=== PATIENT | female | born 1995 | race Caucasian/White ===

== ENCOUNTER → 2017-03-04 | Outpatient (REF) | payer OTHER | LOC: M SFHCWAGY 11:31 | DX: Z12.4 Encounter for screening for malignant neoplasm of cervix (principal) ==

== ENCOUNTER → 2017-03-04 | Outpatient (REF) | payer OTHER ==
[2017-03-04 15:42] LABS: CHLAMYDIA DNA AMPLIFICATION NEGATIVE (NEGATIVE); GC DNA AMPLIFICATION NEGATIVE (NEGATIVE)
== END ==
LOC: M SFHCWAGY 13:44
DX: Z11.3 Encounter for screening for infections with a predominantly sexual mode of transmission (principal)

== ENCOUNTER → 2020-04-10 | Outpatient (REF) | payer OTHER | LOC: M SFHCWAGY 18:56 | PROVIDERS: ATTEND Nurse Practitioner Women's Health | DX: Z12.4 Encounter for screening for malignant neoplasm of cervix (principal) ==

== ENCOUNTER 2022-03-30 08:30 | Day surgery (SDC) | payer OTHER, SELFPAY ==
[~2022-03-30] VITALS: Ht 157.5 cm; Wt 68.4 kg
[2022-03-30] MEDS ORDERED: ONDANSETRON 4MG 2ML VIAL ONE (09:52)
[2022-03-30] MEDS ORDERED: LIDOCAINE 2% 100MG/5ML SDV (FOR ANES.) ONE (09:52)
[2022-03-30] MEDS ORDERED: propofoL 200 MG/20 ML VIAL ONE (09:52)
[2022-03-30] MEDS ORDERED: ACETAMINOPHEN 1000MG 100ML IV BAG ONE (09:52)
[2022-03-30] MEDS ORDERED: ROCURONIUM BROMIDE 50MG/5ML VIAL ONE (09:52)
[2022-03-30] MEDS ORDERED: fentaNYL 100 MCG/2 ML INJECTION ONE (09:53)
[2022-03-30] MEDS ORDERED: MIDAZOLAM INJ 2MG/2ML VIAL ONE (09:53)
[2022-03-30] MEDS ORDERED: CLINDAMYCIN 600MG/50ML PREMIX BAG ONE (10:35)
[2022-03-30] MEDS ORDERED: BUPIVACAINE/EPIN 0.25% 30ML VIAL ONE (10:35)
[2022-03-30] MEDS ORDERED: ONDANSETRON 4MG 2ML VIAL IV PRN (10:40)
[2022-03-30] MEDS ORDERED: NORCO, ANEXSIA 5/325MG TABLET (HYDROcodone/ACETAMINOPHEN) PO PRN (10:40)
[2022-03-30] MEDS ORDERED: ACETAMINOPHEN TAB 650MG DOSE (2X325MG) PO PRN (10:40)
[2022-03-30] MEDS ORDERED: METOCLOPRAMIDE INJ 10MG/2ML VIAL ONE (11:17)
[2022-03-30] MEDS ORDERED: NEOSTIGMINE 10MG 10ML VIAL ONE (11:19)
[2022-03-30] MEDS ORDERED: GLYCOPYRROLATE INJ 0.2 MG/ML 2 ML VIAL ONE ×2 (11:19)
[2022-03-30] MEDS ORDERED: KETOROLAC 60MG 2ML VIAL ONE (11:21)
[2022-03-30] MEDS ORDERED: CLINDAMYCIN 600 MG in IV 1 EA IV ONE (11:30)
[2022-03-30] MEDS ORDERED: NS 1,000 ML IV SCH (11:30)
[2022-03-30] MEDS ORDERED: HYDR-3715 PO (11:47)
[2022-03-30 12:45] VITALS: BP 99/64
[2022-03-30 13:15] VITALS: BP 99/64
[2022-03-30 14:15] VITALS: BP 98/63
[2022-03-30 15:15] VITALS: BP 99/57
== END 2022-03-30 17:00 | disposition home or self-care (01) ==
LOC: M SDC 08:30 → M MS5PR 08:40 → M SDC 17:00
PROVIDERS: ATTEND Surgery
DX: K35.890 Other acute appendicitis without perforation or gangrene (principal); F32.A Depression, unspecified; Z79.899 Other long term (current) drug therapy; Z88.8 Allergy status to other drugs, medicaments and biological substances
CPT/HCPCS: 44970; 88304; J0131; J1100; J1885; J2250; J2405; J2710; J2765; J3010; S0020; S0077

== ENCOUNTER → 2023-10-24 | Outpatient (CLI) | payer OTHER ==
[~2023-10-24] MED LIST: HYDR-3715 PO
== END ==
LOC: M PLALAB 15:11
PROVIDERS: ATTEND Obstetrics & Gynecology
DX: Z34.91 Encounter for supervision of normal pregnancy, unspecified, first trimester (principal)

== ENCOUNTER → 2023-11-27 | Outpatient (CLI) | payer OTHER | LOC: M WHC 14:17 | PROVIDERS: ATTEND Nurse Practitioner Women's Health | DX: Z34.92 Encounter for supervision of normal pregnancy, unspecified, second trimester (principal); Z3A.20 20 weeks gestation of pregnancy ==

== ENCOUNTER → 2024-01-13 | Outpatient (CLI) | payer OTHER ==
[2024-01-13 17:42] LABS: HEMATOCRIT 35.8 % (36.0-47.0); HEMOGLOBIN 12.1 g/dl (12.0-15.5); MEAN CORPUSCULAR HEMOGLOBIN 31.9 pg (27.0-33.0); MEAN CORPUSCULAR HGB CONC 33.8 g/dl (32.0-36.5); MEAN CORPUSCULAR VOLUME 94.5 fl (80.0-96.0); PLATELET COUNT, AUTOMATED 267 10^3/uL (150-450); RED BLOOD COUNT 3.79 10^6/uL (4.00-5.40); WHITE BLOOD COUNT 10.4 10^3/uL (4.0-10.0)
[2024-01-13 18:01] LABS: GLUCOSE CHALLENGE TEST 1 HOUR 122 MG/DL (LESS THAN 140)
[2024-01-13 18:35] LABS: HIV 1&2 SCREEN NEGATIVE (NEGATIVE)
[2024-01-13 18:43] LABS: HEPATITIS C VIRUS ABY INDEX < 0.02 INDEX (<0.8)
[2024-01-13 20:51] LABS: GC DNA AMPLIFICATION NEGATIVE (NEGATIVE)
== END ==
LOC: M PLALAB 13:30
PROVIDERS: ATTEND Obstetrics & Gynecology
DX: Z34.02 Encounter for supervision of normal first pregnancy, second trimester (principal)

== ENCOUNTER 2024-02-12 04:18 | Outpatient (CLI) | payer OTHER ==
[~2024-02-12] VITALS: Ht 157.5 cm; Wt 81.1 kg
[2024-02-12] VITALS (9 sets, daily range): BP systolic 94–122; BP diastolic 50–79
[2024-02-12 05:18] LABS: HEMATOCRIT 34.9 % (36.0-47.0); HEMOGLOBIN 12.2 g/dl (12.0-15.5); MEAN CORPUSCULAR HEMOGLOBIN 31.4 pg (27.0-33.0); MEAN CORPUSCULAR VOLUME 89.9 fl (80.0-96.0); PLATELET COUNT, AUTOMATED 218 10^3/uL (150-450); RED BLOOD COUNT 3.88 10^6/uL (4.00-5.40); WHITE BLOOD COUNT 12.4 10^3/uL (4.0-10.0)
[2024-02-12] MEDS ORDERED: PNVTAB4 PO (05:20)
[2024-02-12] MEDS ORDERED: FLUO-365 PO (05:20)
[2024-02-12] MEDS: TERBUTALINE SULFATE 1 MG/ML 1ML VIAL SC SCH (05:54)
[2024-02-12 06:30] LABS: HEPATITIS C VIRUS ABY INDEX < 0.02 INDEX (<0.8)
[2024-02-12] MEDS: BETAMETHASONE SOLUSPAN 6MG/ML 5ML VIAL IM SCH (10:08)
[2024-02-12] MEDS: LR 1,000 ML IV SCH (12:25)
[2024-02-12] MEDS: MAGNESIUM *L&D* 4GM/100ML BAG (40MG/ML) IV ONE (12:25)
[2024-02-12] MEDS: MAG Sulf (OBGYN) 20GM/500ML 20,000 MG in IV 1 EA IV SCH (12:25)
[2024-02-12] MEDS ORDERED: HOME MED LIST COMPLETE! XX SCH (12:40)
== END 2024-02-12 15:25 ==
LOC: M LDO 04:18 → UNDOADMOB 08:58 → M LDI 08:58 → M LDO 15:25 → UNDODISOB 15:25
PROVIDERS: ATTEND Advanced Practice Midwife
DX: O42.113 Preterm premature rupture of membranes, onset of labor more than 24 hours following rupture, third trimester (principal); O26.853 Spotting complicating pregnancy, third trimester; O99.343 Other mental disorders complicating pregnancy, third trimester; F41.8 Other specified anxiety disorders; Z3A.31 31 weeks gestation of pregnancy; Z88.1 Allergy status to other antibiotic agents
CPT/HCPCS: 59025; 76815; 76817; 76820; 82731; 85027; 86780; 86803; 86850; 86900; 86901; 87081; 87186; 96372; G0463; J0702; J3105; J3475

== ENCOUNTER → 2024-09-15 | Outpatient (REF) | payer OTHER ==
[~2024-09-15] MED LIST changes: +FLUO-365 PO; +PNVTAB4 PO
[2024-09-17 14:22] LABS: HPV APTIMA Not Detected (Not Detected)
== END ==
LOC: M PLALAB 12:09
PROVIDERS: ATTEND Nurse Practitioner Family
DX: Z01.419 Encounter for gynecological examination (general) (routine) without abnormal findings (principal); R87.610 Atypical squamous cells of undetermined significance on cytologic smear of cervix (ASC-US)
CPT/HCPCS: 87624; G0123